=== PATIENT | female | born 1965 | race African-American/Black ===

== ENCOUNTER 2020-04-08 17:50 | Emergency (ER) | payer BC, MEDICAID ==
[~2020-04-08] VITALS: Ht 152.4 cm; Wt 65.8 kg
--- NOTE | 2020-04-08 18:10 | NUR ---
BIB [facility] FROM [facility],C/O CHEST PAIN X 1 WEEK. PATIENT A/OX4, BREATHING EVEN AND UNLABORED, NO SOB NOTED, NEEDS ATTENDED. ATTACHED TO THE LOCK ASSEMBLER. NO DISTRESS NOTED.
[2020-04-08 19:31] LABS: BASOPHILS % (AUTO) 0.8 % (0.0-2.0); EOSINOPHILS % (AUTO) 2.8 % (0.0-6.0); HEMATOCRIT 35 % (33-45); HEMOGLOBIN 11.6 g/dL (11.5-14.8); LYMPHOCYTES # (AUTO) 1.6 /CMM (0.8-4.8); LYMPHOCYTES % (AUTO) 29.7 % (20.0-44.0); MEAN CORPUSCULAR HGB CONC 33 g/dl (31.0-36.0); MEAN CORPUSCULAR VOLUME 86 fL (82-100); MONOCYTES # (AUTO) 0.5 /CMM (0.1-1.30); MONOCYTES % (AUTO) 8.7 % (2.0-12.0); NEUTROPHILS # (AUTO) 3.1 /CMM (1.8-8.9); PLATELET COUNT (AUTO) 306 /CMM (150-450); RED BLOOD CELL COUNT(AUTO) 4.13 MIL/uL (4.0-5.2); WHITE BLOOD COUNT (AUTO) 5.3 K/uL (4.3-11.0)
[2020-04-08 19:51] LABS: CARBON DIOXIDE 26 mmol/L (21-32); CHLORIDE 106 mmol/L (98-107); CREATININE 0.6 mg/dL (0.6-1.3); GLUCOSE 101 mg/dL (74-106); SODIUM SERUM 142 mmol/L (136-145); UREA NITROGEN, BLOOD 14 mg/dL (7-18)
[2020-04-08 19:57] LABS: ALANINE AMINOTRANSFERASE 20 U/L (12-78); ALBUMIN 3.4 g/dL (3.4-5.0); ALKALINE PHOSPHATASE 99 U/L (46-116); ASPARTATE AMINOTRANSFERASE 20 U/L (15-37); BILIRUBIN,DIRECT 0.1 mg/dL (0.0-0.2); BILIRUBIN,TOTAL 0.2 mg/dL (0.2-1.0); TOTAL PROTEIN, SERUM 7.1 g/dL (6.4-8.2)
--- NOTE | 2020-04-08 20:29 | NUR ---
0200 OR EARLIER ETA. RETURN BACK TO [facility]. Addendum: 04/08/20 at 2031 by JUAN ANTONIO AMWEST
--- NOTE | 2020-04-08 20:33 | NUR ---
CALLED FACILITY GAVE REPORT TO [facility] STAFF.
--- NOTE | 2020-04-08 21:33 | NUR ---
REPORT GIVEN TO [facility] TRANSPORT TEAM FOR [place]. AND TRANSFERRING RESPONSIBILITIES.
[2020-04-08 21:35] VITALS: BP 139/87
== END 2020-04-08 21:35 | disposition home or self-care (01) ==
LOC: ER 17:56
DX: R07.89 Other chest pain (principal); R42 Dizziness and giddiness; E11.9 Type 2 diabetes mellitus without complications; K21.9 Gastro-esophageal reflux disease without esophagitis; E78.00 Pure hypercholesterolemia, unspecified
CPT/HCPCS: 36415; 71045-TC; 80048-TC; 80076-TC; 84484-TC; 85025-TC; 85378-TC

== ENCOUNTER 2021-03-30 16:43 | Emergency (ER) | payer MEDICAID ==
[~2021-03-30] VITALS: Ht 154.9 cm; Wt 45.4 kg
[2021-03-30 17:29] LABS: BASOPHILS # (AUTO) 0.1 K/uL (0.0-0.2); BASOPHILS % (AUTO) 1.1 % (0.0-2.0); EOSINOPHILS % (AUTO) 3.7 % (0.0-6.0); HEMATOCRIT 40 % (33-45); HEMOGLOBIN 13.1 g/dL (11.5-14.8); LYMPHOCYTES # (AUTO) 1.7 K/uL (0.8-4.8); LYMPHOCYTES % (AUTO) 27.4 % (20.0-44.0); MEAN CORPUSCULAR HGB CONC 33 g/dl (31.0-36.0); MEAN CORPUSCULAR VOLUME 87 fL (82-100); MONOCYTES # (AUTO) 0.6 K/uL (0.1-1.30); MONOCYTES % (AUTO) 10.7 % (2.0-12.0); NEUTROPHILS # (AUTO) 3.5 K/uL (1.8-8.9); NEUTROPHILS % (AUTO) 57.1 % (43.0-81.0); PLATELET COUNT (AUTO) 281 K/uL (150-450); WHITE BLOOD COUNT (AUTO) 6.1 K/uL (4.3-11.0)
[2021-03-30 17:36] LABS: CALCIUM, SERUM 9.2 mg/dL (8.5-10.1); CARBON DIOXIDE 26 mmol/L (21-32); CHLORIDE 101 mmol/L (98-107); CREATININE 0.9 mg/dL (0.6-1.3); GLUCOSE 141 mg/dL (74-106); POTASSIUM 4.1 mmol/L (3.5-5.1); SODIUM SERUM 139 mmol/L (136-145); UREA NITROGEN, BLOOD 14 mg/dL (7-18)
[2021-03-30 17:42] LABS: ALANINE AMINOTRANSFERASE 20 U/L (12-78); ALBUMIN 4.1 g/dL (3.4-5.0); ALCOHOL, BLOOD < 3 mg/dL (0-0); ALKALINE PHOSPHATASE 100 U/L (46-116); ASPARTATE AMINOTRANSFERASE 15 U/L (15-37); BILIRUBIN,DIRECT 0.1 mg/dL (0.0-0.2); BILIRUBIN,TOTAL 0.4 mg/dL (0.2-1.0); TOTAL PROTEIN, SERUM 8.1 g/dL (6.4-8.2)
[2021-03-30 17:43] LABS: ACETAMINOPHEN < 2 ug/ml (10-30)
[2021-03-30 18:07] LABS: BILIRUBIN,URINE SMALL (NEGATIVE); COLOR,URINE DARK YELLOW (YELLOW); LEUKOCYTE ESTERASE ,URINE Negative (NEGATIVE); NITRITE, URINE Negative (NEGATIVE); PH,URINE 5.5 (5.0-8.0); PROTEIN,URINE Trace mg/dl (NEGATIVE); UGLUCOSE Negative (NEGATIVE); UROBILINOGEN,URINE 0.2 EU/dL (0.2)
[2021-03-30 18:24] LABS: BACTERIA,URINE None seen /HPF (None Seen); HYALINE CASTS, URINE Few /LPF (None Seen); MUCUS,URINE Moderate /LPF (None Seen); RBC,URINE 0-2 /HPF (0-2); SQUAMOUS EPITHELIAL CELL,UR Few /HPF (None Seen); URINE AMORPHOUS URATE Few /HPF (None Seen); WBC,URINE 0-2 /HPF (0-3)
[2021-03-30] MEDS ORDERED: OLANZAPINE 10 MG VIAL IM ONE ×2 (20:29→20:30)
[2021-03-30] MEDS ORDERED: LORAZEPAM INJ 2 MG/ML VIAL ONE (21:50)
[2021-03-30] MEDS ORDERED: LORAZEPAM INJ 2 MG/ML VIAL IM/IV ONE (22:00)
[2021-03-31 07:13] VITALS: BP 135/84
== END 2021-03-31 07:13 ==
LOC: ER 16:46
DX: F29 Unspecified psychosis not due to a substance or known physiological condition (principal); R45.851 Suicidal ideations; R45.850 Homicidal ideations; Z20.822 Contact with and (suspected) exposure to COVID-19; K21.9 Gastro-esophageal reflux disease without esophagitis; F20.9 Schizophrenia, unspecified
CPT/HCPCS: 36415; 80048; 80076; 80143; 80307; 80320; 81001; 85025; 87426; 96372 ×2; 99291; C9803; J2060; J3490; G0480